=== PATIENT | male | born 1945 | race Caucasian/White ===

== ENCOUNTER 2017-09-15 14:44 | Emergency (ER) | payer OTHER, MEDICARE ==
[2017-09-15 14:53] VITALS: BP 157/72; PULSE 104; RESP 18; TEMP 98.5; O2SAT 96
[2017-09-15] MEDS ORDERED: SODIUM CHLORIDE 0.9% FLUSH 10 ML FLUSH IVF PRN (16:00)
--- NOTE | 2017-09-15 16:04 | PD ---
HPI Chief Complaint: Pain: Acute or Chronic Time Seen by Provider: 15:33 Travel History International Travel<30 days: No Contact w/Intl Traveler<30days: No Traveled to known affect area: No History of Present Illness HPI Patient is a 72-year-old male who was emergently sent to the [place] from the [place] for evaluation of possible PE. As per patient, he has been having right-sided shoulder pain which radiates to his left shoulder and throughout his chest for the past week, reports that symptoms are getting progressively worse. Denies any injury or trauma to the shoulders. reports that he went to the [place] today for evaluation of this and was told to go to the emergency room to be evaluated for possible pulmonary embolism. 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 Patient reports that he is oxygen dependent, he uses 4 L of nasal cannula at all times, reports that he is noncompliant with this and does not use oxygen at all times. Reports a past history of smoking. Patient with no chest pain at this time, he does endorse that he has some shortness of breath. After reviewing patient's medical records from the [place], patient is currently taking Eliquis for his DVT, the plan was to change him to Xarelto as his DVT was not improving. He has not started on the Xarelto yet, he was transferred to the hospital for evaluation of possible pulmonary emboli. [facility] Past Medical History Narrative Medical Patient with past medical history positive for diabetes mellitus, anemia, fungal dermatitis, Choe's esophagitis, BPH, peripheral venous insufficiency, coronary arteriosclerosis, restrictive lung disease, inflammatory arthritis, vascular dementia, obesity, arrhythmia, neuropathy, hepatosplenomegaly, meningioma, obesity, hyperlipidemia, DVT, tinnitus, hypertension, GERD, sleep apnea Past Surgical History Narrative Surgical Past surgical history significant for left total knee replacement, Social History Alcohol Use: No Tobacco Use: No Substance Use: No Allergies-Medications (Allergen,Severity, Reaction): Coded Allergies: Penicillins (Verified Allergy, Severe, Swelling, 09/15/17) doxazosin (Verified Adverse Reaction, Intermediate, Dizziness, 09/15/17) methotrexate (Verified Adverse Reaction, Intermediate, ABDOMINAL PAIN, ) Review of Systems General / Constitutional: No: Fever Eyes: No: Visual changes HENT: No: Headaches Cardiovascular: No: Chest Pain or Discomfort Respiratory: Positive: Shortness of Breath Gastrointestinal: No: Abdominal Pain Genitourinary: No: Dysuria Musculoskeletal: Positive: Other (Bilateral shoulder pain), No: Pain Skin: No Rash Neurologic: No: Weakness Psychiatric: No: Depression Endocrine: No: Polydipsia Hematologic/Lymphatic: No: Easy Bruising Physical Exam Narrative GENERAL: Morbidly obese male in no acute distress SKIN: Focused skin assessment warm/dry. HEAD: Atraumatic. Normocephalic. EYES: Pupils equal and round. No scleral icterus. No injection or drainage. ENT: No nasal bleeding or discharge. Mucous membranes pink and moist. NECK: Trachea midline. No JVD. CARDIOVASCULAR: Sinus tachycardia. No murmur appreciated. RESPIRATORY: No accessory muscle use. Clear to auscultation. Breath sounds equal bilaterally. GASTROINTESTINAL: Abdomen soft, non-tender, nondistended. Hepatic and splenic margins not palpable. MUSCULOSKELETAL: No obvious deformities. No clubbing. No cyanosis. +3 pedal edema bilaterally. NEUROLOGICAL: Awake and alert. No obvious cranial nerve deficits. Motor grossly within normal limits. Normal speech. PSYCHIATRIC: Appropriate mood and affect; insight and judgment normal. Data Data Last Documented VS Vital Signs Date Time Temp Pulse Resp B/P (MAP) Pulse Ox O2 Delivery O2 Flow Rate FiO2 09/15/17 16:09 110 19 126/60 (82) 94 Nasal Cannula 3.00 09/15/17 14:53 98.5 Orders Orders Shoulder, Complete (>2vws) (09/15/17 15:01) Electrocardiogram (09/15/17 15:56) B-Type Natriuretic Peptide (09/15/17 15:56) Ckmb (Isoenzyme) Profile (09/15/17 15:56) Complete Blood Count With Diff (09/15/17 15:56) Comprehensive Metabolic Panel (09/15/17 15:56) Magnesium (Mg) (09/15/17 15:56) Prothrombin Time / Inr (Pt) (09/15/17 15:56) Act Partial Throm Time (Ptt) (09/15/17 15:56) Troponin I (09/15/17 15:56) Lipase (09/15/17 15:56) Chest, Single Ap (09/15/17 15:56) Ecg Monitoring (09/15/17 15:56) Iv Access Insert/Monitor (09/15/17 15:56) Oximetry (09/15/17 15:56) Sodium Chloride 0.9% Flush (Ns Flush) (09/15/17 16:00) Ct Pulmonary Angiogram (09/15/17 15:56) Labs Laboratory Tests Test 09/15/17 16:05 White Blood Count 9.1 TH/MM3 Red Blood Count 4.71 MIL/MM3 Hemoglobin 12.8 GM/DL Hematocrit 39.4 % Mean Corpuscular Volume 83.7 FL Mean Corpuscular Hemoglobin 27.3 PG Mean Corpuscular Hemoglobin Concent 32.6 % Red Cell Distribution Width 16.5 % Platelet Count 224 TH/MM3 Mean Platelet Volume 7.5 FL Neutrophils (%) (Auto) 77.8 % Lymphocytes (%) (Auto) 12.7 % Monocytes (%) (Auto) 6.9 % Eosinophils (%) (Auto) 2.0 % Basophils (%) (Auto) 0.6 % Neutrophils # (Auto) 7.0 TH/MM3 Lymphocytes # (Auto) 1.2 TH/MM3 Monocytes # (Auto) 0.6 TH/MM3 Eosinophils # (Auto) 0.2 TH/MM3 Basophils # (Auto) 0.1 TH/MM3 CBC Comment DIFF FINAL Differential Comment Prothrombin Time 14.0 SEC Prothromb Time International Ratio 1.4 RATIO Activated Partial Thromboplast Time 34.3 SEC MDM Medical Decision Making Medical Screen Exam Complete: Yes Emergency Medical Condition: Yes Medical Record Reviewed: Yes Interpretation(s) EKG at 1602: Sinus tach at 103bpm, qt/qtc: 341/401, no acute st or t wave changes Vital Signs Date Time Temp Pulse Resp B/P (MAP) Pulse Ox O2 Delivery O2 Flow Rate FiO2 09/15/17 14:53 98.5 104 18 157/72 (100) 96 Differential Diagnosis DVT, PE, ACS, Electrolyte abnormality Narrative Course During the course of the patients emergency department visit, the patients history, examination, and differential diagnosis were reviewed with the patient. The patient was placed on a permastone installer with oximetry and frequent blood pressure monitoring. The patient had an IV access obtained and blood work sent for analysis. Patient signed out to care of Dr Keller at change of shift Cathryn Knight DO Sep 15, 2017 16:03
[2017-09-15 16:09] VITALS: BP 126/60; PULSE 110; RESP 19; O2SAT 94
--- NOTE | 2017-09-15 16:19 | RADRPT ---
EXAM DATE: 09/15/2017 3:33 PM EDT AGE/SEX: 72 years / Male INDICATIONS: Pain and limited ROM in right shoulder. No known injury. CLINICAL DATA: This is the patient's initial encounter. Patient reports that signs and symptoms have been present for 1 week and indicates a pain score of 8/10. MEDICAL/SURGICAL HISTORY: None. None. COMPARISON: No prior exams available for comparison. FINDINGS: No fracture is seen. The glenohumeral joint is normally aligned. The acromioclavicular joint is lyubov lly aligned. There is hypertrophic change at the acromioclavicular joint. There is hypertrophic alonzo e seen around the greater tubercle. CONCLUSION: No acute abnormality seen. There is hypertrophic change at the acromioclavicular joint and around the greater tubercle. Electronically signed by: Binu Villeda MD 09/15/2017 4:17 PM EDT
[2017-09-15 16:45] LABS: BASOPHIL # 0.1 TH/MM3 (0-0.2); BASOPHIL % 0.6 % (0.0-2.0); EOSINOPHIL # 0.2 TH/MM3 (0-0.4); HEMATOCRIT 39.4 % (39.0-51.0); HEMOGLOBIN 12.8 GM/DL (13.0-17.0); LYMPH % 12.7 % (9.0-44.0); LYMPHOCYTE # 1.2 TH/MM3 (1.0-4.8); MEAN CELL VOLUME 83.7 FL (80.0-100.0); MEAN CORPUSCULAR HEMOGLOBIN 27.3 PG (27.0-34.0); MEAN CORPUSCULAR HGB CONC 32.6 % (32.0-36.0); MEAN PLATELET VOLUME 7.5 FL (7.0-11.0); MONO % 6.9 % (0.0-8.0); MONOCYTE # 0.6 TH/MM3 (0-0.9); NEUT % 77.8 % (16.0-70.0); PLATELET COUNT 224 TH/MM3 (150-450); RED BLOOD COUNT 4.71 MIL/MM3 (4.50-5.90); RED CELL DISTRIBUTION WIDTH 16.5 % (11.6-17.2); WHITE BLOOD COUNT 9.1 TH/MM3 (4.0-11.0)
[2017-09-15 16:55] LABS: INTERNATIONAL NORMALIZED RATIO 1.4 RATIO
[2017-09-15 17:08] LABS: AST (GOT) 16 U/L (15-37); BICARBONATE 26.3 MEQ/L (21.0-32.0); BLOOD UREA NITROGEN 16 MG/DL (7-18); CALCIUM 8.3 MG/DL (8.5-10.1); CHLORIDE 103 MEQ/L (98-107); CREATININE 1.05 MG/DL (0.60-1.30); GLOMERULAR FILTRATION RATE 70 ML/MIN (>89); GLUCOSE,RANDOM 79 MG/DL (74-106); MAGNESIUM 1.5 MG/DL (1.5-2.5); SODIUM (NA) 140 MEQ/L (136-145)
--- NOTE | 2017-09-15 17:08 | RADRPT ---
EXAM DATE: 09/15/2017 4:39 PM EDT AGE/SEX: 72 years / Male INDICATIONS: Shortness of breath. CLINICAL DATA: This is the patient's initial encounter. Patient reports that signs and symptoms have been present for 1 day and indicates a pain score of 0/10. MEDICAL/SURGICAL HISTORY: Non-responsive. Non-responsive. COMPARISON: No prior exams available for comparison. FINDINGS: The heart size is normal. Lungs are grossly clear. There is elevation of the left hemidiaphragm. This configuration is stable. CONCLUSION: No acute abnormality is seen. Electronically signed by: Binu Villeda MD 09/15/2017 5:07 PM EDT
[2017-09-15 17:09] LABS: ALT (GPT) 16 U/L (12-78)
--- NOTE | 2017-09-15 17:09 | PD ---
Physical Exam Narrative Received sign out from previous team to follow up CTA to r/o PE. 72yo M here with history of DVT on eliquis [facility]. CTA negative for pulmonary embolism. Pt denies any chest pain. Labs reviewed, no leukocytosis. CMP unremarkable. Troponin negative. BNP 26. Pt said he has right shoulder pain for 1 week. The pain is more right scapula and worst with movement. Impression is more musculoskeletal. Pt has good range of motion of right shoulder. Sensation intact. Distal pulses intact. Xray right shoulder showed no acute abnormality. There is hypertrophic change at the acromioclavicular joint and around the greater tubercle. Pt given toradol for pain. Return precautions given. Data Data Last Documented VS Vital Signs Date Time Temp Pulse Resp B/P (MAP) Pulse Ox O2 Delivery O2 Flow Rate FiO2 09/15/17 20:18 09/15/17 20:04 16 09/15/17 19:06 100 94 Room Air 09/15/17 16:09 3.00 09/15/17 14:53 98.5 Orders Orders Shoulder, Complete (>2vws) (09/15/17 15:01) Electrocardiogram (09/15/17 15:56) B-Type Natriuretic Peptide (09/15/17 15:56) Ckmb (Isoenzyme) Profile (09/15/17 15:56) Complete Blood Count With Diff (09/15/17 15:56) Comprehensive Metabolic Panel (09/15/17 15:56) Magnesium (Mg) (09/15/17 15:56) Prothrombin Time / Inr (Pt) (09/15/17 15:56) Act Partial Throm Time (Ptt) (09/15/17 15:56) Troponin I (09/15/17 15:56) Lipase (09/15/17 15:56) Chest, Single Ap (09/15/17 15:56) Ecg Monitoring (09/15/17 15:56) Iv Access Insert/Monitor (09/15/17 15:56) Oximetry (09/15/17 15:56) Sodium Chloride 0.9% Flush (Ns Flush) (09/15/17 16:00) Ct Pulmonary Angiogram (09/15/17 15:56) Iohexol 350 Inj (Omnipaque 350 Inj) (09/15/17 17:47) Ketorolac Inj (Toradol Inj) (09/15/17 18:45) Diazepam (Valium) (09/15/17 19:00) Ed Discharge Order (09/15/17 20:13) Labs Laboratory Tests Test 09/15/17 16:05 White Blood Count 9.1 TH/MM3 Red Blood Count 4.71 MIL/MM3 Hemoglobin 12.8 GM/DL Hematocrit 39.4 % Mean Corpuscular Volume 83.7 FL Mean Corpuscular Hemoglobin 27.3 PG Mean Corpuscular Hemoglobin Concent 32.6 % Red Cell Distribution Width 16.5 % Platelet Count 224 TH/MM3 Mean Platelet Volume 7.5 FL Neutrophils (%) (Auto) 77.8 % Lymphocytes (%) (Auto) 12.7 % Monocytes (%) (Auto) 6.9 % Eosinophils (%) (Auto) 2.0 % Basophils (%) (Auto) 0.6 % Neutrophils # (Auto) 7.0 TH/MM3 Lymphocytes # (Auto) 1.2 TH/MM3 Monocytes # (Auto) 0.6 TH/MM3 Eosinophils # (Auto) 0.2 TH/MM3 Basophils # (Auto) 0.1 TH/MM3 CBC Comment DIFF FINAL Differential Comment Prothrombin Time 14.0 SEC Prothromb Time International Ratio 1.4 RATIO Activated Partial Thromboplast Time 34.3 SEC Blood Urea Nitrogen 16 MG/DL Creatinine 1.05 MG/DL Random Glucose 79 MG/DL Total Protein 7.5 GM/DL Albumin 3.0 GM/DL Calcium Level 8.3 MG/DL Magnesium Level 1.5 MG/DL Alkaline Phosphatase 173 U/L Aspartate Amino Transf (AST/SGOT) 16 U/L Alanine Aminotransferase (ALT/SGPT) 16 U/L Total Bilirubin 0.4 MG/DL Sodium Level 140 MEQ/L Potassium Level 3.4 MEQ/L Chloride Level 103 MEQ/L Carbon Dioxide Level 26.3 MEQ/L Anion Gap 11 MEQ/L Estimat Glomerular Filtration Rate 70 ML/MIN Total Creatine Kinase 49 U/L Troponin I LESS THAN 0.02 NG/ML B-Type Natriuretic Peptide 26 PG/ML Lipase 163 U/L [facility] Supervised Visit with CARMEN: No Diagnosis Primary Impression: Shoulder pain, right Qualified Codes: M25.511 - Pain in right shoulder Patient Instructions: General Instructions Departure Forms: Tests/Procedures Additional Instruction: Please follow up with your primary care physician for further evaluation of your shoulder pain. Return to the ED if symptoms worsen. Med/Other Pt SpecificInfo: Prescription(s) given Scripts Cyclobenzaprine (Flexeril) 5 Mg Tab 5 MG PO TID Y for PAIN SCALE 1 TO 4, #10 TAB 0 Refills Prov: Akosua Keller DO 09/15/17 Acetaminophen (Tylenol) 325 Mg Tab 325 MG PO Q4H Y for PAIN SCALE 1 TO 4, #20 TAB 0 Refills Prov: Akosua Keller DO 09/15/17 Disposition: 01 DISCHARGE HOME Condition: Stable Akosua Keller DO Sep 15, 2017 17:09
[2017-09-15 17:12] LABS: ALKALINE PHOSPHATASE 173 U/L (45-117); TOTAL BILIRUBIN ADULT 0.4 MG/DL (0.2-1.0); TOTAL PROTEIN 7.5 GM/DL (6.4-8.2); TROPONIN I LESS THAN 0.02 NG/ML (0.02-0.05)
[2017-09-15] MEDS ORDERED: IOHEXOL 350 MG/ML 10 ML VIAL (for RAD DIAG) IVCONTRAST ONE (17:47)
--- NOTE | 2017-09-15 17:49 | RADRPT ---
EXAM DATE: 09/15/2017 5:39 PM EDT AGE/SEX: 72 years / Male INDICATIONS: Right sided chest pain. CLINICAL DATA: This is the patient's initial encounter. Patient reports that signs and symptoms have been present for 1 day and indicates a pain score of 4/10. MEDICAL/SURGICAL HISTORY: None. None. RADIATION DOSE: 10.66 CTDI (mGy) COMPARISON: No prior exams available for comparison. TECHNIQUE: Volumetric scanning was performed using a multi-row detector CT scanner during bolus infu skye of 75 ml Omnipaque 350 (iohexol) nonionic water-soluble contrast as a single exam dose. The carmela a was post processed with a variety of visualization algorithms including full volume maximum intensi ty projection and sliding thin slab reformation. Using automated exposure control and adjustment of t he mA and/or kV according to patient size, radiation dose was kept as low as reasonably achievable to obtain optimal diagnostic quality images. DICOM format image data is available electronically for r eview and comparison. FINDINGS: Pulmonary Arteries: No filling defects are seen in the pulmonary arteries out to the subsegmental ve ssels. The left and right pulmonary arteries are normal in diameter. Lung: No infiltrates seen. Mild bibasilar atelectasis Effusion: None. Mediastinum: No evidence of mediastinal or hilar adenopathy. Other: The axilla is unremarkable. CONCLUSION: 1. The study is negative for pulmonary embolism. Electronically signed by: Kermit Banegas MD 09/15/2017 5:47 PM EDT
[2017-09-15] MEDS ORDERED: KETOROLAC TROMETHAMINE 30 MG/ML (IVP) VIAL IV PUSH ONE (18:45)
[2017-09-15] MEDS ORDERED: TYLE325T PO (18:49)
[2017-09-15] MEDS ORDERED: DIAZEPAM 5 MG TAB PO ONE (19:00)
[2017-09-15 19:06] VITALS: BP 139/74; PULSE 100; RESP 19; O2SAT 94
[2017-09-15 20:04] VITALS: RESP 16
[2017-09-15] MEDS ORDERED: CYCL5TAB PO (20:24)
--- NOTE | 2017-09-16 17:46 | EKG ---
Date Performed: 09/15/2017 Time Performed: 16:02:42 PTAGE: 72 years EKG: SINUS TACHYCARDIA INFERIOR MYOCARDIAL INFARCTION ABNORMAL ECG NO PREVIOUS TRACING DOCTOR: Brigid Mcallister Interpretating Date/Time 09/16/2017 17:45:29
== END 2017-09-15 20:34 | disposition home or self-care (01) ==
LOC: NEPD 14:44
DX: M25.511 Pain in right shoulder (principal); R06.02 Shortness of breath; R00.0 Tachycardia, unspecified; R94.31 Abnormal electrocardiogram [ECG] [EKG]; I10 Essential (primary) hypertension; E11.40 Type 2 diabetes mellitus with diabetic neuropathy, unspecified; E78.5 Hyperlipidemia, unspecified; F01.50 Vascular dementia, unspecified severity, without behavioral disturbance, psychotic disturbance, mood disturbance, and anxiety; I25.10 Atherosclerotic heart disease of native coronary artery without angina pectoris; I87.2 Venous insufficiency (chronic) (peripheral); N40.0 Benign prostatic hyperplasia without lower urinary tract symptoms; Z99.81 Dependence on supplemental oxygen; Z87.891 Personal history of nicotine dependence; Z86.718 Personal history of other venous thrombosis and embolism; Z88.0 Allergy status to penicillin; Z88.8 Allergy status to other drugs, medicaments and biological substances; Z79.01 Long term (current) use of anticoagulants
CPT/HCPCS: 71045; 71275; 73030; 80053; 82550; 83690; 83735; 83880; 84484; 85025; 85610; 85730; 93005; 96374; 99285; J1885; Q9967